=== PATIENT | female | born 1980 | race Caucasian/White ===

== ENCOUNTER 2016-09-16 07:34 | Observation (INO) | payer MEDICAID ==
[2016-09-16 07:44] VITALS: BMI 17.7
[2016-09-16 07:47] VITALS: TEMP 98.8
[2016-09-16 08:24] LABS: HCG,QUALITATIVE URINE POSITIVE (NEGATIVE)
--- NOTE | 2016-09-16 08:25 | C.PDOC ---
History Of Present Illness 35 Y/O FEMALE, APPX 7 WEEKS , PRESENTS TO ED C/O LOWER ABDOMINAL PAIN SINCE YESTERDAY. DENIES VAGINAL BLEEDING, VOMITING, DIARRHEA, OR OTHER ASSOCIATED SYMPTOMS. Time Seen by Provider: 09/16/16 07:51 Chief Complaint (Nursing): Female Genitourinary History Per: Patient History/Exam Limitations: no limitations Onset/Duration Of Symptoms: Days Current Symptoms Are (Timing): Still Present Recent travel outside of the [place]: No Past Medical History Reviewed: Historical Data, Nursing Documentation, Vital Signs Vital Signs: Last Vital Signs Temp 98.8 F 09/16/16 11:39 Pulse 95 H 09/16/16 11:39 Resp 16 09/16/16 11:39 BP 105/70 09/16/16 11:39 Pulse Ox 99 09/16/16 11:39 - Medical History PMH: No Chronic Diseases Family History: States: Unknown Family Hx - Social History Hx Tobacco Use: Yes Hx Alcohol Use: No Hx Substance Use: No - Immunization History Hx Tetanus Toxoid Vaccination: No Hx Influenza Vaccination: No Hx Pneumococcal Vaccination: No Review Of Systems Except As Marked, All Systems Reviewed And Found Negative. Constitutional: Negative for: Fever, Chills Cardiovascular: Negative for: Chest Pain Respiratory: Negative for: Cough, Shortness of Breath Gastrointestinal: Positive for: Abdominal Pain. Negative for: Diarrhea Genitourinary: Negative for: Vaginal Discharge, Vaginal Bleeding Skin: Negative for: Rash Physical Exam - Physical Exam Appears: Non-toxic, No Acute Distress Skin: Normal Color, Warm, Dry Head: Atraumatic, Normacephalic Oral Mucosa: Moist Chest: Symmetrical Cardiovascular: Rhythm Regular, No Murmur Respiratory: Normal Breath Sounds, No Rales, No Rhonchi, No Wheezing Gastrointestinal/Abdominal: Soft, Tenderness (MILD, SUPRAPUBIC), No Distention, No Guarding, No Rebound Back: Normal Inspection Extremity: Normal ROM Neurological/Psych: Oriented x3, Normal Speech, Normal Cognition ED Course And Treatment - Laboratory Results Result Diagrams: 09/16/16 09:16 09/16/16 09:16 O2 Sat by Pulse Oximetry: 97 (RA) Pulse Ox Interpretation: Normal - CT Scan/US US Other Rad Studies (CT/US): Radiology Report Reviewed (Seven weeks 6 days live intrauterine gestation. Gestational concordance documented) Disposition Counseled Patient/Family Regarding: Studies Performed, Diagnosis, Need For Followup - Disposition Disposition: HOME/ ROUTINE Disposition Time: 11:26 Condition: IMPROVED - Clinical Impression Clinical Impression: Threatened - Scribe Statement The provider has reviewed the documentation as recorded by the Scribe Provider Attestation: AGUSTIN CRAIG All medical record entries made by the Scribe were at my direction and personally dictated by me. I have reviewed the chart and agree that the record accurately reflects my personal performance of the history, physical exam, medical decision making, and the department course for this patient. I have also personally directed, reviewed, and agree with the discharge instructions and disposition.
[2016-09-16 08:29] LABS: SQUAMOUS EPITHIAL < 1 /hpf (0-5); URINE BILIRUBIN NEGATIVE (NEGATIVE); URINE BLOOD NEGATIVE (NEGATIVE); URINE CLARITY Clear (Clear); URINE COLOR Yellow (YELLOW); URINE GLUCOSE (UA) NORMAL (Normal); URINE LEUKOCYTE ESTERASE NEG Leu/uL (Negative); URINE NITRATE NEGATIVE (NEGATIVE); URINE PROTEIN NEGATIVE (NEGATIVE); URINE UROBILINOGEN NORMAL mg/dL (0.2-1.0)
[2016-09-16 09:23] LABS: BASO % 0.4 % (0.0-2.0); EOS # 0.2 K/uL (0.0-0.7); EOS % 2.5 % (0.0-4.0); HEMOGLOBIN 13.2 g/dL (11.0-16.0); LYMPH # 2.1 K/uL (1.0-4.3); LYMPH % 24.6 % (20.0-40.0); MEAN CELL VOLUME 88.8 fL (81.0-99.0); MEAN CORPUSCULAR HEMOGLOBIN 29.8 pg (27.0-31.0); MEAN CORPUSCULAR HGB CONC 33.6 g/dL (33.0-37.0); MEAN PLATELET VOLUME 8.4 fL (7.2-11.7); MONO # 0.5 K/uL (0.0-0.8); NEUT # 5.7 K/uL (1.8-7.0); NEUT % 66.5 % (50.0-75.0); RBC 4.43 Mil/uL (3.80-5.20); RED CELL DISTRIBUTION WIDTH 12.6 % (11.5-14.5); WHITE BLOOD COUNT 8.6 K/uL (4.8-10.8)
[2016-09-16 09:49] LABS: ALB/GLOB RATIO 1.4 (1.0-2.1); ALT/SGPT 34 U/L (9-52); AST/SGOT 19 U/L (14-36); BLOOD UREA NITROGEN 6 mg/dL (7-17); GFR AFRICAN-AMERICAN > 60; GFR NON-AFRICAN AMERICAN > 60
[2016-09-16 09:50] LABS: CALCIUM 8.5 mg/dl (8.6-10.4)
--- NOTE | 2016-09-16 10:50 | US ---
PROCEDURE: First trimester ultrasound HISTORY: PELVIC PAIN RO ECTOPIC COMPARISON: None available. TECHNIQUE: Standard protocol for this study/examination. FINDINGS: LMP: 07/27/2016 Prior examinations from the current : None TECHNIQUE: Real-time 2D imaging, duplex and color Doppler. FINDINGS: Cardiac activity: Present Rate: 137 BPM Measurements: [place] rump length: 1.15 cm Gestational age based on CRL 7 weeks 2 days Gestational age based on gestational sac measurement 8 weeks 2 days Gestational age derived from LMP: 7 weeks 2 days NANCY based on LMP: 05/03/2017 NANCY based on biometry: 04/29/2017 Gestational concordance documented Yolk sac identified Uterus: Unremarkable. No Cervical abnormalities: Negative examination for cervical dilatation or effacement. Cervical length 3.7 cm. Subchorionic hemorrhage: None ADNEXA: Right: 2.9 x 2.9 x 4.3 cm. Normal Doppler arterial waveform documented. Left: 3.1 x 3.1 x 4.5 cm. Normal Doppler arterial waveform documented Fluid in the cul-de-sac: None IMPRESSION: Seven weeks 6 days live intrauterine gestation. Gestational concordance documented
[2016-09-16 11:39] VITALS: BP 105/70; PULSE 95; RESP 16
[2016-09-17 11:58] VITALS: O2SAT 97
== END 2016-09-16 11:41 | disposition home or self-care (01) ==
LOC: C.ER 07:34 → C.9OBSV 08:15
PROVIDERS: ADMIT Emergency Medicine; ATTEND Emergency Medicine
DX: O20.0 Threatened abortion (principal); Z3A.01 Less than 8 weeks gestation of pregnancy; Z87.891 Personal history of nicotine dependence; Z68.1 Body mass index [BMI] 19.9 or less, adult
CPT/HCPCS: 36415; 76801; 80053; 81001; 84702; 84703; 85025; 99285; G0378

== ENCOUNTER 2016-11-07 10:37 | Emergency (ER) | payer MEDICAID ==
[2016-11-07 10:37] VITALS: BMI 17.7
--- NOTE | 2016-11-07 10:48 | C.PDOC ---
History Of Present Illness 36 year old female presents to the ED with complaints of intermittent lower abdominal pain beginning yesterday that she describes as "pinching" and "contractions". Patient is 15 weeks , A1, and has an appointment scheduled for next with [facility]. She denies fever, dysuria, vaginal bleeding, or discharge. Time Seen by Provider: 11/07/16 10:47 Chief Complaint (Nursing): Abdominal Pain History Per: Patient History/Exam Limitations: no limitations Onset/Duration Of Symptoms: Days (1 day ), Intermittent Episodes (every 10-15 minutes since yesterday ) Current Symptoms Are (Timing): Still Present Location Of Pain/Discomfort: Suprapubic Radiation Of Pain To:: None Quality Of Discomfort: Other ("Pinching" and "contractions") Associated Symptoms: denies: Fever, Chills, Nausea, Vomiting Recent travel outside of the [place]: No Abnormal Vaginal Bleeding: No : 3 Para: 1 Miscarriage: 1 Past Medical History Reviewed: Historical Data, Nursing Documentation, Vital Signs Vital Signs: Last Vital Signs Temp 98.9 F 11/07/16 11:46 Pulse 90 11/07/16 11:46 Resp 16 11/07/16 11:46 BP 101/62 11/07/16 11:46 Pulse Ox 97 11/07/16 17:14 Family History: States: Other Other Family History: non-contributory. - Social History Hx Tobacco Use: Yes Hx Alcohol Use: No Hx Substance Use: No - Immunization History Hx Tetanus Toxoid Vaccination: No Hx Influenza Vaccination: No Hx Pneumococcal Vaccination: No Review Of Systems Constitutional: Negative for: Fever, Chills Cardiovascular: Negative for: Chest Pain Respiratory: Negative for: Shortness of Breath Gastrointestinal: Positive for: Abdominal Pain. Negative for: Nausea, Vomiting , Diarrhea Genitourinary: Negative for: Dysuria, Vaginal Discharge, Vaginal Bleeding Physical Exam - Physical Exam Appears: Non-toxic, No Acute Distress Skin: Warm, Dry Head: Atraumatic Eye(s): bilateral: Normal Inspection Oral Mucosa: Moist Neck: Supple Chest: Symmetrical, No Deformity Cardiovascular: Rhythm Regular Respiratory: Normal Breath Sounds, No Rales, No Rhonchi, No Wheezing Gastrointestinal/Abdominal: Soft, Tenderness (suprapubic tenderness ), No Distention, No Guarding, No Rebound Neurological/Psych: Oriented x3, Normal Speech, Normal Cognition ED Course And Treatment O2 Sat by Pulse Oximetry: 97 (room air ) Progress Note: UA was ordered and patient was given Tylenol. Bedside US was performed showing intrauterine , heart rate at 150 bpm, and positive movement. Medical Decision Making Medical Decision Making: bedside US shows FHR 150, + movement Disposition - Disposition Disposition: HOME/ ROUTINE Disposition Time: 11:37 Condition: STABLE Additional Instructions: Please follow up with your OBGYN doctor. Return to the ER for any worsening symptoms or for any other concerns. Instructions: Abdominal Pain in (ED) Forms: [facility] (Estonian) Print Language: TURKMEN - Clinical Impression Clinical Impression: Abdominal pain during - Scribe Statement The provider has reviewed the documentation as recorded by the Scribe Nena Palmer All medical record entries made by the Scribe were at my direction and personally dictated by me. I have reviewed the chart and agree that the record accurately reflects my personal performance of the history, physical exam, medical decision making, and the department course for this patient. I have also personally directed, reviewed, and agree with the discharge instructions and disposition.
[2016-11-07 11:26] LABS: URINE BILIRUBIN NEGATIVE (NEGATIVE); URINE BLOOD NEGATIVE (NEGATIVE); URINE COLOR Yellow (YELLOW); URINE GLUCOSE (UA) NORMAL (Normal); URINE KETONE NEGATIVE (NEGATIVE); URINE LEUKOCYTE ESTERASE NEG Leu/uL (Negative); URINE PROTEIN NEGATIVE (NEGATIVE); URINE UROBILINOGEN NORMAL mg/dL (0.2-1.0); WBC URINE < 1 /hpf (0-5)
[2016-11-07 11:47] VITALS: BP 101/62; PULSE 90; RESP 16; TEMP 98.9
[2016-11-07 17:02] VITALS: O2SAT 97
== END 2016-11-07 11:47 | disposition home or self-care (01) ==
LOC: C.ER 10:37
DX: O26.892 Other specified pregnancy related conditions, second trimester (principal); R10.30 Lower abdominal pain, unspecified; Z3A.15 15 weeks gestation of pregnancy

== ENCOUNTER 2017-03-10 20:53 | Emergency (ER) | payer MEDICAID ==
[2017-03-10 21:01] VITALS: BMI 20.9
[2017-03-10] MEDS ORDERED: Lactated Ringer's 1,000 ML IV ONE (21:43)
[2017-03-10 22:17] LABS: SQUAMOUS EPITHIAL 1 /hpf (0-5); URINE BILIRUBIN NEGATIVE (NEGATIVE); URINE BLOOD NEGATIVE (NEGATIVE); URINE CLARITY Clear (Clear); URINE COLOR Yellow (YELLOW); URINE GLUCOSE (UA) NORMAL (Normal); URINE LEUKOCYTE ESTERASE NEG Leu/uL (Negative); URINE NITRATE NEGATIVE (NEGATIVE); URINE PROTEIN NEGATIVE (NEGATIVE); URINE UROBILINOGEN NORMAL mg/dL (0.2-1.0)
--- NOTE | 2017-03-10 22:52 | OBHP ---
Datetime: 03/10/2017 21:36 IP Adm Impression: , intrauterine ; No Active Labor IP Admit Plan: Discharge home Admit Comment, IP Provider: chief complaint-contractions HPI 36 y/o at 32.2 wga with c;o contractions.denies vaginal bleeidng or loss of fluid course uncomplicated as per patient; prental care with [facility] PMH denies PSH denies OBGYN HX ; [id number] Social hx denies tobacco,alcohol or illicit drug use Exam see exam section A/P 36 y/o at 32.2 wga with c/o contractions.no active labor -iv fluid -check ua -monitor closely 10.48pm UA neg for nitrites and LE Patient feels better with iv fludis deneis any pain patient re-ecmsned.cervix uncahnegd patient discharged home follow up in clinic in am advised pelvic rest labor precautions given Pelvic Type - PN: Adequate Extremities - PN: Normal Abdomen - PN: Normal General - PN: Normal Contraction Comments Provider: occ IP Hx Assessment: The History has been Reviewed and is Current EGA AdmitDate IP: 32.2 Vital Signs Provider: Reviewed; Within Normal Limits IP Chief Complaint: Uterine contractions FHR Category Provider Fetus A: Category I Dilatation, Provider: 0 Genitourinary Exam: Normal DTRs - PN: Normal
[2017-03-11 03:21] VITALS: BP 106/61; PULSE 101; RESP 18; TEMP 98.2
== END 2017-03-10 23:00 | disposition home or self-care (01) ==
LOC: C.EROB 20:53
DX: O47.03 False labor before 37 completed weeks of gestation, third trimester (principal); Z3A.32 32 weeks gestation of pregnancy
CPT/HCPCS: 81001; 99283; J7120

== ENCOUNTER 2017-04-25 18:32 | Emergency (ER) | payer MEDICAID ==
[2017-04-25] MEDS ORDERED: Lactated Ringer's 1,000 ML IV ONE (19:07)
--- NOTE | 2017-04-25 20:33 | US ---
EXAM: US Biophysical Profile Without Non-Stress Testing EXAM DATE/TIME: Exam ordered 04/25/2017 7:05 PM CLINICAL HISTORY: 36 years old, female; Pain; Pain indication: Abd pain; ; Additional info: Abdominal pain TECHNIQUE: Real-time ultrasound of the maternal pelvis for biophysical profile evaluation with image documentation. COMPARISON: No relevant prior studies available. FINDINGS: breathing movements: Present. Score 2/2. Gross body movements: Present. Score 2/2. tone: Present. Score 2/2. Qualitative amniotic fluid volume: Within normal limits. Score 2/2. Biometry BPD = [9.54 cm]; Estimated Menstrual Age = [39 w 0 d]; Range = [82Z9I-38Q5S] HC = [34.41 cm]; Estimated Menstrual Age = [39 w 5 d]; Range = [27K2X-33R 3-D] AC = [35.24 cm]; Estimated Menstrual Age = [39 w 1 d]; Range = [34R1W-13O2C] FL = [7.74 cm]; Estimated Menstrual Age = [39 w 4 d]; Range = [88R5V-93C8E] HC/AC Ratio = [0.98] normal 0.88-1.05 EFW = 3742 g plus or -561 g (8 lbs. 4 oz. plus or -1 lb. 4 oz.) STEPHANIE= 18.85 (normal 6.41-25.70) Placenta: Posterior and fundal and free of the cervical os. Cervix length: 3 cm Presentation: Vertex HR =[154 bpm] Multiple echoes are noted throughout the amniotic fluid. Survey Spine [Normal] Stomach [Normal] Bladder [Normal] IMPRESSION: 1. Single live intrauterine with an estimated menstrual age of 39 weeks and 3 days plus or -2 weeks and 5 days. This compares to an expected gestational age of 38 weeks and 6 days based on ultrasound dated 09/16/2016. Expected date of delivery 04/29/2017 2. Normal biophysical profile. 3. Limited survey.
[2017-04-26 14:32] VITALS: BP 111/68; PULSE 140; RESP 18; O2SAT 100
== END 2017-04-25 20:25 | disposition home or self-care (01) ==
LOC: C.EROB 18:32
DX: O47.1 False labor at or after 37 completed weeks of gestation (principal); Z3A.38 38 weeks gestation of pregnancy
CPT/HCPCS: 76815; 76818; 99283; J7120

== ENCOUNTER 2017-04-28 05:51 | Inpatient (IN) | payer MEDICAID ==
[2017-04-28] MEDS ORDERED: Lactated Ringer's 1,000 ML IV SCH (06:30)
[2017-04-28] MEDS ORDERED: Lidocaine 2% Inj (20ml) ONE (07:18)
--- NOTE | 2017-04-28 07:41 | OBDS ---
MATERNAL INFORMATION Provider Comments: Spontaneous vaginal delivery of a viable female infant with BW of 7IB 11oz. scores of 9 and 9. LABOR SUMMARY EDC: 05/03/2017 00:00 No. Babies in Womb: 0 LABOR INFORMATION Group B Beta Strep: Negative MEMBRANES Membranes Rupture Method: Spontaneous Rupture of Membranes: 04/28/2017 03:00 Length of Rupture (hrs): 4.07 Amniotic Fluid Color: Clear Amniotic Fluid Amount: Moderate Amniotic Fluid Odor: Normal VAGINAL DELIVERY Episiotomy: None Laceration Extension: Second Degree Laceration Type: Perineal Laceration Repair Note: 2nd degree laceration repaired with 2-0 chromic under local anesthesia with 1 % lidocaine with good cosmesis. BABY A INFORMATION Infant Delivery Date/Time: 04/28/2017 07:04 Method of Delivery: Vaginal Born in Route : No : N/A SHOULDER DYSTOCIA BABY A Infant Delivery Date/Time: 04/28/2017 07:04 INFORMATION BABY A Gestational Age at Delivery: 39.2 Gestational Status: Term Outcome : Liveborn Infant Condition : Stable Sex: Female (Annotations: Data stored by [facility] on behalf of user) IDENTIFICATION/MEDS BABY A ID Band Number: [id number] Sensor Number: [id number]
[2017-04-28] MEDS ORDERED: Benzocaine/Menthol 20%-0.5% Topical Spray (60 ml) TOP PRN (07:43)
[2017-04-28 08:23] LABS: BASO # 0.1 K/uL (0.0-0.2); BASO % 0.7 % (0.0-2.0); EOS # 0.1 K/uL (0.0-0.7); HEMOGLOBIN 12.1 g/dL (11.0-16.0); LYMPH # 1.9 K/uL (1.0-4.3); LYMPH % 21.3 % (20.0-40.0); MEAN CELL VOLUME 87.7 fL (81.0-99.0); MEAN CORPUSCULAR HEMOGLOBIN 30.9 pg (27.0-31.0); MEAN CORPUSCULAR HGB CONC 35.2 g/dL (33.0-37.0); MEAN PLATELET VOLUME 8.6 fL (7.2-11.7); MONO # 0.5 K/uL (0.0-0.8); MONO % 5.7 % (0.0-10.0); NEUT # 6.4 K/uL (1.8-7.0); NEUT % 71.3 % (50.0-75.0); RBC 3.9 Mil/uL (3.80-5.20); RED CELL DISTRIBUTION WIDTH 13.3 % (11.5-14.5)
[2017-04-28 08:41] LABS: ALB/GLOB RATIO 1.1 (1.0-2.1); ALBUMIN 3.6 g/dL (3.5-5.0); ALT/SGPT 17 U/L (9-52); AST/SGOT 20 U/L (14-36); BLOOD UREA NITROGEN 8 mg/dL (7-17); CALCIUM 9.2 mg/dl (8.6-10.4); GFR AFRICAN-AMERICAN > 60; GFR NON-AFRICAN AMERICAN > 60
[2017-04-28 08:46] LABS: SQUAMOUS EPITHIAL 8 /hpf (0-5); URINE AMORPHOUS SEDIMENT MODERATE /ul (<OCC); URINE BACTERIA OCC (<OCC); URINE BILIRUBIN NEGATIVE (NEGATIVE); URINE BLOOD 3+ (NEGATIVE); URINE CLARITY Turbid (Clear); URINE COLOR Yellow (YELLOW); URINE GLUCOSE (UA) NORMAL (Normal); URINE LEUKOCYTE ESTERASE TRACE Leu/uL (Negative); URINE NITRATE NEGATIVE (NEGATIVE); URINE PROTEIN 1+ mg/dL (NEGATIVE); URINE UROBILINOGEN NORMAL mg/dL (0.2-1.0)
[2017-04-28] MEDS: Oxycodone/Acetaminophen 5/325 mg Tab PO PRN (20:02)
[2017-04-29] MEDS: Oxycodone/Acetaminophen 5/325 mg Tab PO PRN ×3 (00:11→23:57)
--- NOTE | 2017-04-29 08:35 | OBPPN ---
Datetime: 04/29/2017 08:32 PP Pain Prov: Within normal limits PP Nausea Prov: Denies PP Flatus Prov: Yes PP BM Prov: No PP Breasts Prov: Normal PP Heart Prov: Normal PP Lungs Prov: Normal PP Abdomen/Uterus Prov: Normal PP Lochia Prov: Normal PP Vulva/Perineum Prov: Normal PP CVA Tenderness Prov: Normal PP Extremities Prov: Normal PP C/S Incision Prov: Not Applicable PP Progress Prov: Normal PP Impression Prov: Normal progression PP Plan Prov: Continue present management PP Progress Note Prov: pt seen adn examined and reports pain controlled with medicain. pt is tolerat ing diet without nause, vomiting, ambuating, voiding, passing flatus, denies any fever, chills, cp, s ob, lightheadness, headahces. pt is . VSS PE GEN NAD< AAO x 3 RESP: CTAB?L CVS: RRR< +S1/S2 ABD: Soft, NT/ND, +BS, no guarding, no rebound tendneren no rigidty, FUNDUS: FIrm, at level of umbilucsi VE: Minimal lochia, non fouls smelling EXT: no calf tenderness, negative gera's sign A/P s/p PPD #1 doing well -f/u am lab -pain manamgnet -encourage breast feedign adn ambaution IP PP Procedures: None Vital Signs Provider PP: Reviewed; Within Normal Limits
[2017-04-29 08:48] LABS: BASO % 0.2 % (0.0-2.0); EOS # 0.2 K/uL (0.0-0.7); EOS % 1.5 % (0.0-4.0); HEMOGLOBIN 12.2 g/dL (11.0-16.0); LYMPH # 2.3 K/uL (1.0-4.3); MEAN CELL VOLUME 88.6 fL (81.0-99.0); MEAN CORPUSCULAR HEMOGLOBIN 30.5 pg (27.0-31.0); MEAN CORPUSCULAR HGB CONC 34.4 g/dL (33.0-37.0); MEAN PLATELET VOLUME 8.3 fL (7.2-11.7); MONO # 0.8 K/uL (0.0-0.8); MONO % 6.1 % (0.0-10.0); NEUT % 75.2 % (50.0-75.0); RBC 4.01 Mil/uL (3.80-5.20); RED CELL DISTRIBUTION WIDTH 13.7 % (11.5-14.5); WHITE BLOOD COUNT 13.3 K/uL (4.8-10.8)
[2017-04-29 09:24] VITALS: RESP 18; O2SAT 98
[2017-04-30] MEDS: Oxycodone/Acetaminophen 5/325 mg Tab PO PRN (05:33)
[2017-04-30 08:33] VITALS: BP 118/59; PULSE 80; TEMP 97.7
--- NOTE | 2017-04-30 09:14 | OBPPN ---
Datetime: 04/30/2017 08:55 PP Pain Prov: Within normal limits PP Nausea Prov: Denies PP Flatus Prov: Yes PP BM Prov: Yes PP Breasts Prov: Normal PP Heart Prov: Normal PP Lungs Prov: Normal PP Abdomen/Uterus Prov: Normal PP Lochia Prov: Normal PP Vulva/Perineum Prov: Normal PP CVA Tenderness Prov: Normal PP Extremities Prov: Normal PP Progress Prov: Normal PP Impression Prov: Normal progression PP Plan Prov: Continue present management; Discharge PP Progress Note Prov: Patient seen and examined at bedside. Per nursing no acute events overnight. Patient is doing well, pain is controlled. Lochia is mild. Ambulating and tolerating diet. Passing fl atus and BM. Urinating without difficulty. Breast and bottle feeding. Denies headaches, dizziness, cp , palpitations, sob, urinary symptoms. BP 118/59 HR 80 Temp 97.7 Gen: AAOx3 Abd: Soft, fundus firm below umbilicus Ext: No clubbing, cyanosis, edema; no calf tenderness Labs: 9.0>12.1/ A positive Rubella immune A/P: agree with above pt seen and examined dc home precauitn given Vital Signs Provider PP: Reviewed; Within Normal Limits
--- NOTE | 2017-04-30 09:14 | OBDCSUM ---
Datetime: 04/30/2017 09:10 Discharged to, Provider: Home Follow up at, Provider: clinic Disch Instr Activity: Normal activity Disch Instr Diet: Regular Discharge Instructions, Provider: Routine instructions given Discharge Diagnosis, Provider: Term Delivered Discharge Time: 04/30/2017 09:11 Follow up in weeks, Provider: 6 weeks Disch Referrals: None Contraception discussed, Prov: Yes Disch Activity Restrictions: No sexual activity; Nothing in vagina - [place], tampons, douche Discharge Comment, Provider: Precautions given Contraception after Delivery: Not Planning to Use
== END 2017-04-30 11:29 | disposition home or self-care (01) | DRG 373 ==
LOC: C.EROB 05:51 → C.4D 06:10 → C.4M 10:25
PROVIDERS: ADMIT Obstetrics & Gynecology; ATTEND Obstetrics & Gynecology
PROC: 10E0XZZ Delivery of Products of Conception, External Approach (ICD-10-PCS; principal; 2017-04-28)
PROC: 0KQM0ZZ Repair Perineum Muscle, Open Approach (ICD-10-PCS; 2017-04-28)
DX: O70.1 Second degree perineal laceration during delivery (principal); Z37.0 Single live birth; Z3A.39 39 weeks gestation of pregnancy

== ENCOUNTER 2018-05-22 19:43 | Emergency (ER) | payer MEDICAID ==
[2018-05-22 19:43] VITALS: BMI 20.9
[2018-05-22 20:05] VITALS: BP 113/68; PULSE 82; RESP 16; TEMP 98.4; O2SAT 100
[2018-05-22 20:45] LABS: HCG,QUALITATIVE URINE NEGATIVE (NEGATIVE)
[2018-05-22 20:46] LABS: SQUAMOUS EPITHIAL 1 /hpf (0-5); URINE BILIRUBIN NEGATIVE (NEGATIVE); URINE BLOOD NEGATIVE (NEGATIVE); URINE CLARITY Clear (Clear); URINE COLOR Yellow (YELLOW); URINE GLUCOSE (UA) NORMAL (Normal); URINE LEUKOCYTE ESTERASE NEG Leu/uL (Negative); URINE PROTEIN NEGATIVE (NEGATIVE); URINE UROBILINOGEN NORMAL mg/dL (0.2-1.0)
--- NOTE | 2018-05-22 21:20 | C.PDOC ---
History Of Present Illness This pt was not seen or evaluated by me at all in the ED. Left prior to being seen by ED provider Time Seen by Provider: 05/22/18 20:24 Chief Complaint (Nursing): Abdominal Pain Past Medical History Vital Signs: Last Vital Signs Temp 98.4 F 05/22/18 20:01 Pulse 82 05/22/18 20:01 Resp 16 05/22/18 20:01 BP 113/68 05/22/18 20:01 Pulse Ox 100 05/22/18 20:01 - [facility] Procedures DELIVERY OF PRODUCTS OF CONCEPTION, EXTERNAL APPROACH (04/28/17) REPAIR PERINEUM MUSCLE, OPEN APPROACH (04/28/17) Family History: States: Unknown Family Hx - Social History Hx Tobacco Use: Yes Hx Alcohol Use: No Hx Substance Use: No - Immunization History Hx Tetanus Toxoid Vaccination: No Hx Influenza Vaccination: No Hx Pneumococcal Vaccination: No ED Course And Treatment - Laboratory Results Lab Results: Urine Color Yellow (YELLOW) 05/22/18 20:37 Urine Clarity Clear (Clear) 05/22/18 20:37 Urine pH 6.0 (5.0-8.0) 05/22/18 20:37 Ur Specific [place] 1.016 (1.003-1.030) 05/22/18 20:37 Urine Protein Negative mg/dL (NEGATIVE) 05/22/18 20:37 Urine Glucose (UA) Normal mg/dL (Normal) 05/22/18 20:37 Urine Ketones Negative mg/dL (NEGATIVE) 05/22/18 20:37 Urine Blood Negative (NEGATIVE) 05/22/18 20:37 Urine Nitrate Negative (NEGATIVE) 05/22/18 20:37 Urine Bilirubin Negative (NEGATIVE) 05/22/18 20:37 Urine Urobilinogen Normal mg/dL (0.2-1.0) 05/22/18 20:37 Ur Leukocyte Esterase Neg Jackie/uL (Negative) 05/22/18 20:37 Urine WBC (Auto) < 1 /hpf (0-5) 05/22/18 20:37 Urine RBC (Auto) < 1 /hpf (0-3) 05/22/18 20:37 Ur Squamous Epith Cells 1 /hpf (0-5) 05/22/18 20:37 Urine HCG, Qual Negative (NEGATIVE) 05/22/18 20:37 Urine HCG, Qual Negative (NEGATIVE) 05/22/18 20:37 O2 Sat by Pulse Oximetry: 100 Disposition - Disposition Disposition Time: 21:09 Condition: UNKNOWN - Clinical Impression Clinical Impression: Patient left without being seen
== END 2018-05-22 20:28 | disposition left against medical advice (07) ==
LOC: C.ER 19:43
DX: Z02.89 Encounter for other administrative examinations (principal); R10.9 Unspecified abdominal pain
CPT/HCPCS: 81001; 84703; LWBS0